=== PATIENT | female | born 1955 | race Caucasian/White ===

== ENCOUNTER 2022-08-02 09:13 | Day surgery (SDC) | payer OTHER ==
[~2022-08-02] VITALS: Ht 165.1 cm; Wt 85.5 kg
[2022-08-02] MEDS ORDERED: Mirapex0.125 MG PO (10:16)
--- NOTE | 2022-08-02 11:28 | NUR ---
08/02/22 1128 Roxanna Grimm ROPIVACAINE 0.5% 30 MLS MIXED W/ EPI 0.15 ML (1MG/ML) PER ORDER TO MAKE ROPIVACAINE 0.5% 1:200,00 FOR INJECTION AT OPSITE. 30 MLS INJECTED
--- NOTE | 2022-08-02 12:53 | NUR ---
08/02/22 1253 Serena Leong NORCO 5-325MG 1 TABLET PO GIVEN FOR C/O 09/16 PAIN. PT IN RECLINER TOLERATING WATER AND EATING SALTINE CRACKERS. DENIES NAUSEA. AT CHAIRSIDE.
== END 2022-08-02 13:30 | disposition home or self-care (01) ==
LOC: ORSCSDS 09:13
PROVIDERS: Podiatrist Foot & Ankle Surgery
PROC: 0SGM04Z Fusion of Right Metatarsal-Phalangeal Joint with Internal Fixation Device, Open Approach (ICD-10-PCS; principal; 2022-08-02 10:45)
PROC: 0QBN0ZZ Excision of Right Metatarsal, Open Approach (ICD-10-PCS; principal; 2022-08-02 10:45)
DX: M20.21 Hallux rigidus, right foot (principal); M21.621 Bunionette of right foot; M79.671 Pain in right foot
CPT/HCPCS: A9270; C1713; J0171; J0690; J1100; J1885; J2250; J2370; J2405; J2704; J2795; J3010; J7120

== ENCOUNTER → 2024-04-19 | Outpatient (CLI) | payer OTHER ==
[~2024-04-19] MED LIST: Mirapex0.125 MG PO
[2024-04-19 10:17] LABS: Source, Urine Clean Catch
[2024-04-19 11:04] LABS: Bacteria Few /hpf; Red Blood Cells, Urine 0-2 /hpf (0-2); Squamous Epithelial Cells Few /hpf (Few); Transitional Epithelial Cells Rare /hpf (0-Rare)
== END ==
LOC: LAB SHORT 10:14 → LAB 10:14
PROVIDERS: Family Medicine
DX: R30.0 Dysuria (principal)
CPT/HCPCS: 81015; 87086